=== PATIENT | female | born 2000 | race Caucasian/White ===

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

== ENCOUNTER 2025-09-16 05:10 | Emergency (ER) | payer MEDICAID ==
[~2025-09-16] VITALS: Ht 149.9 cm; Wt 54.0 kg
[~2025-09-16 05:10] MED LIST: FAMO-135 MT; P20 MT
[2025-09-16 05:15] VITALS: O2SAT 98
[2025-09-16 06:26] LABS: HEMATOCRIT. 25.2 % (36.0-48.0); HEMOGLOBIN. 7.4 g/dL (12.0-16.0); MEAN PLATELET VOLUME 6.2 fl (7.4-10.4); PLATELET 454 x1000/uL (130-400); RED BLOOD CELL COUNT 4.35 mill/uL (4.2-5.4); RED CELL DISTRIBUTION WIDTH 21.0 % (11.6-14.6)
[2025-09-16] MEDS: ACETAMINOPHEN 1000MG/100ML 100 ML IV ONE (06:42)
[2025-09-16] MEDS: SODIUM CHLORIDE 0.9% 1,000 ML IV ONE (06:42)
[2025-09-16] MEDS: ONDANSETRON HCL 4MG/2ML INJ IV ONE (06:43)
[2025-09-16 06:46] LABS: CREATININE 0.6 mg/dL (0.6-1.0)
[2025-09-16 06:47] LABS: UREA NITROGEN BLOOD 8 mg/dL (9-23)
[2025-09-16 06:48] LABS: ASPARTATE AMINOTRANSFERASE 31 IU/L (<34)
[2025-09-16 06:49] LABS: BILIRUBIN DIRECT < 0.1 mg/dL (<=3.0); BILIRUBIN TOTAL 0.3 mg/dL (0.1-1.0); PROTEIN TOTAL 7.9 g/dL (6.0-8.3)
[2025-09-16 07:25] LABS: HCG SCREEN NEGATIVE
[2025-09-16 07:32] LABS: CLARITY URINE TURBID (CLEAR); COLOR URINE YELLOW (YELLOW); PH URINE 6.0 (4.5-8.0); SPECIFIC GRAVITY URINE >1.030 (1.005-1.030)
[2025-09-16 07:33] LABS: GLUCOSE URINE NEGATIVE (NEGATIVE); KETONES URINE 1+ (NEGATIVE); LEUKOCYTE ESTERASE URINE NEGATIVE (NEGATIVE); NITRITE URINE NEGATIVE (NEGATIVE); OCCULT BLOOD URINE NEGATIVE (NEGATIVE); PROTEIN URINE 1+ (NEGATIVE); UROBILINOGEN URINE 0.2 E.U./dL (0.2-1.0)
[2025-09-16 07:42] LABS: SQUAMOUS EPITHELIAL CELL URINE FEW /lpf (RARE/1+)
[2025-09-16 07:43] LABS: AMORPHOUS SEDIMENT URINE 2+ /lpf; BACTERIA URINE NONE SEEN; RBC URINE NONE SEEN /hpf (0-2); WBC URINE 0-2 /hpf (0-2)
[2025-09-16] MEDS ORDERED: FERR236T3 PO (08:03)
[2025-09-16 08:21] VITALS: BP 90/68; PULSE 80; RESP 15; TEMP 36.9; O2SAT 95
[2025-09-16 13:03] LABS: BAND% 10.0 % (1.0-6.0); LYMPHOCYTES % MANUAL 4.0 % (20.0-60.0); MONOCYTES % MANUAL 2.0 % (2.0-8.0); NEUTROPHILS % MANUAL 84.0 % (45.0-75.0); PLATELET ESTIMATE INCREASED
== END 2025-09-16 08:22 | disposition home or self-care (01) ==
LOC: ER 05:10
DX: R10.31 Right lower quadrant pain (principal); D64.9 Anemia, unspecified
CPT/HCPCS: 80076; 80048; 81003; 81025; 84703; 83690; 85025; 36415; 96361; 96374; 96375; 99284; J2405; J7030; Z7610; J0131